=== PATIENT | female | born 1995 | race American Indian/Alaskan Native ===

== ENCOUNTER 2020-06-03 00:59 | Emergency (ER) | payer SELFPAY ==
[2020-06-03] MEDS ORDERED: WATER FOR INJ Sterile (PF) 10 ML ONE (01:23)
[2020-06-03] MEDS ORDERED: ZIPRASIDONE MESYLATE 20 MG VIAL IM ONE ×2 (01:23→01:29)
--- NOTE | 2020-06-03 01:36 | Emergency Department Report ---
ED Psych HPI - General Chief Complaint: Psych Stated Complaint: MH EVALUATION Time Seen by Provider: 06/03/20 01:29 Source: patient, police Mode of arrival: Ambulatory - History of Present Illness Initial Comments: Patient is 25-year-old female, unknown past medical or psychiatric history. Patient brought to the emergency room via police from family home. Family reported that patient became very disruptive, yelling and screaming. They also stated that he started throwing knife in the sink. Upon arrival to the ER patient is very agitated and combative with police and the ED staff. Patient received Geodon 10 mg IM for sedation. Unable to obtain more information at thi s moment. Complaint: altered mental status - Related Data Previous Rx's Medication Instructions Recorded Last Taken Type cephALEXin [Keflex] 500 mg PO Q12HR #14 cap 06/03/20 Unknown Rx Allergies Allergy/AdvReac Type Severity Reaction Status Date / Time No Known Allergies Allergy Verified 11/19/14 20:50 ED Review of Systems ROS: Stated complaint: MH EVALUATION Other details as noted in HPI Comment: Unobtainable due to pts medical conditions ED Past Medical Hx - Past Medical History Hx Hypertension: No Hx Diabetes: No Hx Deep Vein Thrombosis: No Hx Renal Disease: No Hx Sickle Cell Disease: No Hx Seizures: No Hx Asthma: No Hx HIV: No - Social History Smoking Status: Former Smoker - Medications Home Medications: Home Medications Medication Instructions Recorded Confirmed Last Taken Type cephALEXin [Keflex] 500 mg PO Q12HR #14 cap 06/03/20 Unknown Rx ED Physical Exam - General Limitations: No Limitations General appearance: alert, anxious, other (Agitated) - Head Head exam: Present: atraumatic, normocephalic, normal inspection - Eye Eye exam: Present: normal appearance, PERRL - ENT ENT exam: Present: normal exam, normal orophraynx, mucous membranes moist - Neck Neck exam: Present: normal inspection, full ROM. Absent: tenderness, meningismus - Respiratory Respiratory exam: Present: normal lung sounds bilaterally - Cardiovascular Cardiovascular Exam: Present: regular rate, normal rhythm, normal heart sounds - GI/Abdominal GI/Abdominal exam: Present: soft, normal bowel sounds. Absent: distended, te nderness, guarding, rebound, rigid, organomegaly, mass, bruit, pulsatile mass, hernia - Back Exam Back exam: Present: normal inspection. Absent: CVA tenderness (R), CVA tenderness (L) - Neurological Exam Neurological exam: Present: alert - Psychiatric Psychiatric exam: Present: agitated, anxious, manic - Skin Skin exam: Present: warm, intact, normal color ED Course Vital Signs 06/03/20 06/03/20 01:04 06:25 Temperature 98.2 F 98.0 F Pulse Rate 125 H 87 Respiratory 20 18 Rate Blood Pressure 139/99 Blood Pressure 103/61 [Right] O2 Sat by Pulse 97 97 Oximetry ED Medical Decision Making - Lab Data Result diagrams: 06/03/20 01:40 06/03/20 01:40 Critical care attestation.: If time is entered above; I have spent that time in minutes in the direct care of this critically ill patient, excluding procedure time. ED Disposition Clinical Impression: Mood disorder Disposition: DC-01 TO HOME OR SELFCARE Is pt being admited?: No Condition: Stable Additional Instructions: Professional and Agency Contacts To help Resolve Crises(13/09) [place] Crisis Line: Suicide Prevention Line: Crisis Text Line: Text START to 453509 Emergency: 911 [facility] - [address] [place] [address] Tuesday thru Tuesday - 8am - 5pm In case of an emergency, please contact the following numbers: [place] Crisis and Access Line: Number: Crisis Text Line: (Text START) Number: 415737 Suicide Prevention Line: Number: Emergency Number: 911 SUBSTANCE ABUSE PROGRAMS: [facility]: Location: [place], [place] [employer] Address: [address] [place] [address] [address] [facility] Address: [address] [place] [address] [facility]: Address: [address] [place] [address] [facility]: Address: [address] [place] [address] [facility] Address: [address] [place] [address]. Please contact above numbers to attempt placement into free based program. Medicaid Programs: [facility]: Address: [address] [place] [address] [facility]: Address: [address] [place] [address] Professional and Agency Contacts To help Resolve Crises(13/09) [place] Crisis Line: Suicide Prevention Line: Crisis Text Line: Text START to 756758 Emergency: 911 Outpatient COMMUNITY Behavioral Health Resources: [facility]AR[facility]: [facility] [address] [facility] [place], [place] [address] [place]: [facility] [address] [place] [address] [place]: [facility] - [address] [place] [address] Tuesday thru Tuesday - 8am - 5pm [place]: [facility] Address: [address] [place] [address] [place]: [facility] Address: [address] [place] [address] Tuesday thru Tuesday- 7am-2pm [facility] Address: [address] [place] [address] Tuesday thru Tuesday: 8:30AM-5PM OUTPATIENT MENTAL HEALTH RESOURCES [facility], [facility] Josesito Green MD: [address] [place] [address], [address] [place] [address] [place], [place] [id number] [facility]: [facility] [address] [place] [address] [place], [place] [id number] [phone] [facility]: [facility] Healthcare: [address] [place] [address] [address] [facility] [place] [address] [facility] [id number] [facility]: Timo Verdin MD: [id number] [facility] [address] [facility] [address] [facility]: [address] [place] [address] [phone] [place] CRISIS AND ACCESS LINE: Prescriptions: cephALEXin [Keflex] 500 mg PO Q12HR #14 cap Referrals: [facility] [Outside] - 3-5 Days PRIMARY CARE, [Primary Care Provider] - 3-5 Days
[2020-06-03 01:54] LABS: Basophils % (Auto) 0.6 % (0.0-1.8); Eosinophils # (Auto) 0.1 K/mm3 (0.0-0.4); Eosinophils % (Auto) 2.1 % (0.0-4.3); Hematocrit 42.5 % (30.3-42.9); Hemoglobin 14.6 gm/dl (10.1-14.3); Lymphocytes % (Auto) 40.5 % (13.4-35.0); Mean Corpuscular HGB Conc 34 % (30-34); Mean Corpuscular Volume 100 fl (79-97); Monocytes # (Auto) 0.7 K/mm3 (0.0-0.8); Monocytes % (Auto) 14.5 % (0.0-7.3); Platelet Count 336 K/mm3 (140-440); Red Blood Count 4.27 M/mm3 (3.65-5.03); Red Cell Distribution Width 14.5 % (13.2-15.2)
[2020-06-03 02:13] LABS: BUN/Creatinine Ratio 8; Blood Urea Nitrogen 7 mg/dL (7-17); Calcium 9.2 mg/dL (8.4-10.2); Hemolysis Index 9
[2020-06-03 06:28] VITALS: BP 103/61
--- NOTE | 2020-06-03 10:21 | Consultation ---
History of Present Illness - Reason for Consult Consult date: 06/03/20 Reason for consult: aggressive/ETOH - History of Present Psychiatric Illness Per ED Note: Patient is 25-year-old female, unknown past medical or psychiatric history. Patient brought to the emergency room via police from family home. Family reported that patient became very disruptive, yelling and screaming. They also stated that he started throwing knife in the sink. Upon arrival to the ER patient is very agitated and combative with police and the ED staff. Patient received Geodon 10 mg IM for sedation. Unable to obtain more information at this moment. Per Nurse Note: PT UP WALKING IN DINH GOING Back and forth to bathroom. refusing to get a urine specimen Moises Orellana is a 25y/o female patient who was brought in by family for agitation. During my interview with the patient today, she is lying down. She is calm, and cooperative. She makes fair eye contact. She says she was brought in because "me and my mother aren't the best of friends. We got into it." The patient then says "we both were drinking." She then shows me bruises on her arm, and leg. She says "she did that because we got into it." The patient says "yesterday I was so upset. I didn't realize she was trying to bring me here." The patient then asks me if I "would apologize to the staff." She says "I said a lot of stuff that I shouldn't have said. I was very upset." The patient verbalizes feeling better, but states "I'm a little sad cause I'm here. I want my babies." She denies illicit drug use outside of [facility]C. But staff states the patient refuses urine specimen. She verbalizes "drinking a lot lately." The patient denies SI/HI. She says "I wouldn't hurt myself and I don't want to hurt my mom. But I know she probably said I was homicidal because that's what she says." The patient also denies any fear or feelings of endangerment for herself or anyone else. PAST PSYCHIATRIC HISTORY: Diagnoses: Denies Suicide attempts or Self-harm behavior: Denies Prior psychiatric hospitalizations: Denies Substance Abuse history: Denies Previous psychiatric medications tried: Denies Outpatient treatment: Denies PAST MEDICAL HISTORY: None reported Family Psychiatric History: None reported or documented SOCIAL HISTORY Marital Status: Single Living Arrangements: Alone Employment Status: Unemployed Access to guns/weapons: Denies Education: high school History of Abuse: Denies Legal History: None reported REVIEW OF SYSTEMS Constitutional: Negative for weight loss ENT: Negative for stridor Respiratory: Negative for cough or hemoptysis All other systems reviewed and are negative MENTAL STATUS EXAMINATION General Appearance and Behavior: Age appropriate, good hygiene, wearing appropriate clothes, fair eye contact, calm, cooperative, polite Cooperation: Participating/engaged Psychomotor Behavior: Psychomotor normal Mood: "better but a little sad" Affect and affective range: Congruent with stated mood Thought Process: goal directed Thought Content: None Speech: Normal rate, volume and rhythm Suicidal Ideation: Denies Homicidal Ideation: Denies Hallucinations: Denies Delusions: None elicited Impulse Control: Limited Insight and Judgment: Limited insight and judgment Memory: Limited Attention: Normal Orientation: Alert, oriented Assessment and Plan (1) Substance Induced Mood Disorder Treatment Plan Continue any previously prescribed medications No scripts given this time Sitter: Per primary Medical: Per primary Disposition: Do not recommend acute psychiatric inpatient at this time The patient to abstain from all illicit drug use and alcohol The cabin equipment supervisor to give the patient outpatient resources The patient to follow up with primary and outpatient psych in 7 to 14 days upon discharge Will sign off. Thank you for this consult Case staffed with Dr. Aquino Medications and Allergies Allergies Allergy/AdvReac Type Severity Reaction Status Date / Time No Known Allergies Allergy Verified 11/19/14 20:50 Mental Status Exam - Vital signs Last Vital Signs Temp 98.0 F 06/03/20 06:25 Pulse 87 06/03/20 06:25 Resp 18 06/03/20 06:25 BP 103/61 06/03/20 06:25 Pulse Ox 97 06/03/20 06:25 Results Result Diagrams: 06/03/20 01:40 06/03/20 01:40 Abnormal lab results 06/03/20 06/03/20 06/03/20 Range/Units 01:40 01:40 01:40 Hgb 14.6 H (10.1-14.3) gm/dl MCV 100 H (79-97) fl MCH 34 H (28-32) pg Lymph % (Auto) 40.5 H (13.4-35.0) % Greenlee % (Auto) 14.5 H (0.0-7.3) % Salicylates < 0.3 L (2.8-20.0) mg/dL Acetaminophen 5.0 L (10.0-30.0) ug/mL Plasma/Serum Alcohol (0-0.07) % 06/03/20 Range/Units 01:40 Hgb (10.1-14.3) gm/dl MCV (79-97) fl MCH (28-32) pg Lymph % (Auto) (13.4-35.0) % Greenlee % (Auto) (0.0-7.3) % Salicylates (2.8-20.0) mg/dL Acetaminophen (10.0-30.0) ug/mL Plasma/Serum Alcohol 0.25 H (0-0.07) % All other labs normal.
[2020-06-03 11:17] LABS: Bilirubin,Urine NEG (Negative); Blood,Urine MOD (Negative); Color,Urine Amber (Yellow); Urobilinogen,Urine < 2.0 mg/dL (<2.0)
[2020-06-03 11:23] LABS: Mucus,Urine 3+ /HPF; WBC,Urine > 182.0 /HPF (0.0-6.0)
[2020-06-03 11:25] LABS: Amphetamine Screen,Urine Negative; Benzodiazepines Screen,Urine Negative; Cocaine Screen,Urine Negative; Methadone Screen,Urine Negative; Opiate Screen,Urine Negative
[2020-06-03 11:44] LABS: Cannabinoid Screen,Urine Positive
== END 2020-06-03 14:03 | disposition home or self-care (01) ==
LOC: ED 00:59 → EEVIPCON 00:59 → ED 14:03
DX: F39 Unspecified mood [affective] disorder (principal); Z79.899 Other long term (current) drug therapy; Z20.822 Contact with and (suspected) exposure to COVID-19
CPT/HCPCS: 36415; 80048; 80307; 81001; 84703; 85025; 96372; 99284; J3486; U0003; 80320; G0480